=== PATIENT | male | born 1980 | race Caucasian/White ===

== ENCOUNTER 2016-06-22 15:50 | Emergency (ER) | payer SELFPAY ==
--- NOTE | 2016-06-26 11:27 | ER ---
ADMIT: 06/22/2016 RM/LOC: ER [facility] MR#: [id number] [address] [address] [address] [place] [address] Emergency Room Report SEX: M AGE: 36 : 1980 DATE: 06/22/2016 ADDENDUM: CHIEF COMPLAINT: Shakiness and amnesia of the last 24 hours. HISTORY OF PRESENT ILLNESS: This is a 36-year-old male who is alcoholic. He drinks 1.75 daily of vodka. He cannot remember what happened last night. He does not know if he did any other drugs. He does have a history of doing methamphetamine, but this was 10 years ago. COURSE IN THE EMERGENCY ROOM: CBC, CMP, lipase, UA, tox, and EtOH and head CT was done, everything essentially negative except for a slightly low potassium at 2.8. 40 mEq of potassium has been given, 2 L of normal saline has been given. I did call [facility]. They have a male bed available. I suggested that he go there for detox. CLINICAL IMPRESSION: Alcohol abuse with withdrawal symptoms. FIDELIA Soto / Vinny Roach MD / benl JOB #: [id number] CC: Vinny Roach MD, Attending Physician
== END 2016-06-22 19:30 | disposition home or self-care (01) ==
LOC: ER 15:50
DX: F10.239 Alcohol dependence with withdrawal, unspecified (principal)

== ENCOUNTER 2016-06-23 04:17 | Emergency (ER) | payer SELFPAY ==
--- NOTE | 2016-06-23 19:08 | ER ---
ADMIT: 06/23/2016 RM/LOC: ER [facility] MR#: [id number] [address] [id number] [address] SA[address] [place] [address] Emergency Room Report SEX: M AGE: 36 : 1980 DATE: 06/23/2016 HISTORY OF PRESENT ILLNESS: The patient is a 36-year-old male with a past medical history of alcohol abuse, who came to the ER to have the urine drug test, so he can be followed up at [facility]. The patient states that the last alcohol use was 3 days ago and denies any tremor or shakiness. The patient denies any pain or distress at all. The patient denies any drug use. The patient denies any trauma, shortness of breath, headache, neck pain, neck stiffness, back pain, and abdominal pain. The patient states he is serious that he wants to go through rehabilitation. PHYSICAL EXAMINATION: GENERAL: The patient was in no distress, answered the question. Alert and oriented to person, place, and time. NEURO: Grossly normal. LUNGS: Clear bilaterally. HEART: Normal S1, S2. ABDOMEN: Soft. The rest of the physical exam was noncontributory. LABORATORY DATA: Urine tox was positive for amphetamines and negative for the rest of the urine tox. PLAN: The patient at the moment has no signs or symptoms in favor of withdrawal syndrome. The patient is stable to be discharged to [facility], but was told that he is more than welcome to come back if there is any withdrawal symptoms or if there is any questions or concerns. The patient was discharged to [facility] voluntarily. West Hardwick MD/ kiran JOB #: [id number] CC: West Hardwick MD, Attending Physician Yaron West MD, Family Physician
== END 2016-06-23 05:00 | disposition home or self-care (01) ==
LOC: ER 04:17
DX: F10.10 Alcohol abuse, uncomplicated (principal); F15.10 Other stimulant abuse, uncomplicated